=== PATIENT | female | born 1965 | race Caucasian/White ===

== ENCOUNTER 2023-10-17 19:44 | Outpatient (CLI) | payer OTHER, SELFPAY ==
--- NOTE | 2023-10-26 11:58 | W.PM.SLEEP ---
Sleep Study Details Details Interpreting Provider: Mariaelena Date of Sleep Study: 10/17/23 Sleep Study Details: STUDY TYPE:? Home unattended ? BMI:? Not recorded ORDERING PROVIDER:? Mariaelena INDICATION:? Concerns about sleep apnea ? SLEEP SUMMARY:? 473.2 minutes monitored RESPIRATORY SUMMARY:? AHI I have per CMS guidelines 1.6, per rule 1A guidelines 2.4 Low oxygen 91 Snoring 1.7% PERIODIC LIMB MOVEMENTS OF SLEEP:? Not recorded during home study CARDIAC:? Range 45-92, mean 54.3 IMPRESSION:? This study is not demonstrate clinically significant obstructive sleep apnea. RECOMMENDATION: If sleep disorder is strongly suspected recommend repeating study and sleep lab with a sedative hypnotic agent.
== END 2023-10-17 19:45 | disposition home or self-care (01) ==
DX: G47.30 Sleep apnea, unspecified (principal)
CPT/HCPCS: 95806

== ENCOUNTER 2024-12-24 10:03 | Outpatient (CLI) | payer OTHER, SELFPAY | END 2024-12-24 10:04 | disposition home or self-care (01) | LOC: NFLDREF 12-25 13:06 | PROVIDERS: Visit Provider Family Medicine | DX: N30.00 Acute cystitis without hematuria (principal); N39.0 Urinary tract infection, site not specified; Z88.9 Allergy status to unspecified drugs, medicaments and biological substances | CPT/HCPCS: 87086 ==

== ENCOUNTER 2025-04-07 09:28 | Outpatient (CLI) | payer OTHER, SELFPAY | END 2025-04-07 09:29 | disposition home or self-care (01) | PROVIDERS: Visit Provider Family Medicine | DX: R30.0 Dysuria (principal); R35.0 Frequency of micturition | CPT/HCPCS: 87086 ==